=== PATIENT | male | born 1950 | race Caucasian/White ===

== ENCOUNTER → 2017-03-22 | Outpatient (CLI) | payer MEDICARE ==
[2017-03-22 11:22] LABS: Blood Urea Nitrogen 17 mg/dL (9-20); Non-African American GFR(MDRD) >60 (>60 ml/min/1.73 sqM)
--- NOTE | 2017-03-22 13:36 | CT ---
EXAMINATION TYPE: CT abdomen wo/w con DATE OF EXAM: 03/22/2017 11:55 AM COMPARISON: Prior CT 03 Apr 2016 HISTORY: Adrenal mass CT DLP: 2544.3 mGycm Automated exposure control for dose reduction was used. TECHNIQUE: Helical acquisition of images was performed pre- and post administration of intravenous c ontrast from the lung bases through the top of iliac crest to include entire abdomen. CONTRAST: Pre- and postadministration of contrast, 100 cc Omni 300. FINDINGS: LUNG BASES: No significant abnormality is appreciated. LIVER/GB: Hyperdense focus in the dependent portion of the gallbladder compatible with gallstone.. PANCREAS: No significant abnormality is seen. SPLEEN: Spleen is again noted to be enlarged.. ADRENALS: Stable appearance, small left adrenal mass measuring approximately 14 mm is unchanged. KIDNEYS: Right cortical cyst is again seen and measures approximately 3.4 cm and is stable. BOWEL: No significant abnormality is seen. LYMPH NODES: No significant abnormality is appreciated. OSSEOUS STRUCTURES: No significant abnormality is seen. FREE AIR: No Free Air visible ASCITES: None visible. RETROPERITONEAL ADENOPATHY: No Retroperitoneal Adenopathy visible. OTHER: IMPRESSION: STABLE EXAM. 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
== END | disposition home or self-care (01) ==
LOC: RADCTMAIN 10:43
PROVIDERS: ATTEND Internal Medicine
DX: E27.8 Other specified disorders of adrenal gland (principal); K80.20 Calculus of gallbladder without cholecystitis without obstruction; R16.1 Splenomegaly, not elsewhere classified
CPT/HCPCS: 82565; 84520; 74170; 36415; Q9967

== ENCOUNTER → 2017-05-31 | Outpatient (CLI) | payer MEDICARE ==
--- NOTE | 2017-05-31 16:31 | XR ---
EXAMINATION TYPE: XR Hip Complete LT DATE OF EXAM: 05/31/2017 CLINICAL HISTORY: Left hip pain for many years. TECHNIQUE: AP and frogleg views of the left hip are obtained. COMPARISON: None. FINDINGS: There is no acute fracture/dislocation evident in the left hip. There is advanced superior joint space loss with mild acetabular spurring. Overlying soft tissue is unremarkable. IMPRESSION: There is advanced degenerative change in left hip redemonstrated.
--- NOTE | 2017-05-31 16:33 | XR ---
EXAMINATION TYPE: XR lumbosacral spine min 4V DATE OF EXAM: 05/31/2017 CLINICAL HISTORY: Low back pain for years. TECHNIQUE: Frontal, lateral, and oblique images of the lumbar spine are obtained. COMPARISON: CT abdomen and pelvis April 03, 2016 FINDINGS: Demineralization is present. There are 5 lumbar type vertebral bodies identified. The lumb ar spine shows satisfactory alignment without evidence of acute fracture or dislocation. Vertebral alana dy heights remain within normal limits. There is mild to moderate disc space narrowing L4-L5 level. There is moderate disc space narrowing L5-S1 level. There is multilevel moderate anterior and latera l spurring. The oblique images are felt within normal limits. Overlying soft tissue is unremarkable. IMPRESSION: Demineralization with multilevel degenerative changes redemonstrated, no significant alejandre ge from prior CT.
--- NOTE | 2017-06-01 10:06 | ECHOF ---
Referral Reason:I10 Essential Primary Hypertension MEASUREMENTS -------- HEIGHT: 188.0 cm WEIGHT: 131.5 kg BP: 160/86 RVIDd: 3.9 cm (< 3.3) IVSd: 1.2 cm (0.6 - 1.1) LVIDd: 4.9 cm (3.9 - 5.3) LVPWd: 1.2 cm (0.6 - 1.1) IVSs: 1.6 cm LVIDs: 3.0 cm LVPWs: 1.4 cm LAESV Index (A-L): 19.15 ml/m Ao Diam: 4.1 cm (2.0 - 3.7) AV Cusp: 2.1 cm (1.5 - 2.6) LA Diam: 3.1 cm (2.7 - 3.8) MV EXCURSION: 14.577 mm (> 18.000) MV EF SLOPE: 48 mm/s (70 - 150) EPSS: 0.7 cm MV E Gilberto: 0.57 m/s MV DecT: 368 ms MV A Gilberto: 1.17 m/s MV E/A Ratio: 0.48 FINDINGS -------- Sinus rhythm. This was a technically adequate study. The left ventricular size is normal. There is mild concentric left ventricular hypertrophy. Overall left ventricular systolic function is normal with, an EF between 60 - 65 %. The right ventricle is normal in size and function. Normal LA size by volume 22+/-6 ml/m2. The right atrium is normal in size. The aortic valve is trileaflet, and appears structurally normal. No aortic stenosis or regurgitation. The mitral valve leaflets are mildly thickened. There is trace mitral regurgitation. Trace tricuspid regurgitation present. There is no evidence of pulmonary hypertension. The right ventricular systolic pressure, as measured by Doppler, is {RVSP}. The pulmonic valve was not well visualized. There is no pulmonic regurgitation present. The aortic root is mildy dilated at 3.9 cm. Normal inferior vena cava with normal inspiratory collapse consistent with estimated right atrial pressure of 5 mmHg. There is no pericardial effusion. CONCLUSIONS -------- 1. Sinus rhythm. 2. There is no evidence of pulmonary hypertension. 3. The pulmonic valve was not well visualized. 4. There is no pulmonic regurgitation present. 5. The aortic root is mildy dilated at 3.9 cm. 6. There is no pericardial effusion. 7. This was a technically adequate study. 8. There is mild concentric left ventricular hypertrophy. 9. Overall left ventricular systolic function is normal with, an EF between 60 - 65 %. 10. Normal LA size by volume 22+/-6 ml/m2. 11. The aortic valve is trileaflet, and appears structurally normal. No aortic stenosis or regurgitation. 12. The mitral valve leaflets are mildly thickened. 13. There is trace mitral regurgitation. 14. Trace tricuspid regurgitation present. AUTOMATED ACCESS SYSTEMS TECHNICIAN: Benoit Fuller RDCS
== END | disposition home or self-care (01) ==
LOC: RADECHMAIN 15:50
PROVIDERS: ATTEND Internal Medicine
DX: I08.1 Rheumatic disorders of both mitral and tricuspid valves (principal); M16.12 Unilateral primary osteoarthritis, left hip; M47.816 Spondylosis without myelopathy or radiculopathy, lumbar region
CPT/HCPCS: 72110; 73502; 93306

== ENCOUNTER → 2024-06-26 | Outpatient (CLI) | payer MEDICARE | END | disposition home or self-care (01) | LOC: LABPRL 13:38 | PROVIDERS: ATTEND Urology | DX: R35.1 Nocturia (principal) | CPT/HCPCS: 84153 ==